=== PATIENT | female | born 1975 | race Two or more races ===

== ENCOUNTER 2018-01-26 01:48 | Emergency (ER) | payer SELFPAY ==
[~2018-01-26] VITALS: Ht 165.1 cm; Wt 65.8 kg
--- NOTE | 2018-01-26 02:21 | NUR ---
Pt. came into ED reporting anxiety d/t meeting boyfriends family for first time, denies SOB/CP/DUGAN/F/N/V
--- NOTE | 2018-01-26 02:25 | NUR ---
Dr. Montenegro in w/ pt for MSE
--- NOTE | 2018-01-26 02:37 | NUR ---
Patient discharged to home in stable conditon. Written and verbal after care instructions given. Patient verbalizes understanding of instructions. Pt. d/c w/ prescription per MD order, left w/ all belongings,
[2018-01-26 02:39] VITALS: BP 113/87
== END 2018-01-26 02:40 | disposition home or self-care (01) ==
LOC: ER 01:53
DX: F41.9 Anxiety disorder, unspecified (principal); F17.200 Nicotine dependence, unspecified, uncomplicated
CPT/HCPCS: A4663

== ENCOUNTER 2018-02-12 19:10 | Emergency (ER) | payer SELFPAY ==
[~2018-02-12] VITALS: Ht 165.1 cm; Wt 65.8 kg
--- NOTE | 2018-02-12 19:21 | NUR ---
Dr Reynaldo HARRIS MD at bedside for MSE.
[2018-02-12] MEDS ORDERED: IBUPROFEN 800 MG TABLET PO ONE (19:30)
[2018-02-12] MEDS ORDERED: IBUPROFEN 800 MG TABLET ONE (19:31)
--- NOTE | 2018-02-12 19:42 | NUR ---
Patient discharged to home in stable conditon. Written and verbal after care instructions given. Patient verbalizes understanding of instructions. Pt left ER in steady gait. All belongings with pt. VSS. NAD noted.
[2018-02-12 19:44] VITALS: BP 110/69
== END 2018-02-12 19:45 | disposition home or self-care (01) ==
LOC: ER 19:12
DX: G89.29 Other chronic pain (principal); M54.41 Lumbago with sciatica, right side; F17.200 Nicotine dependence, unspecified, uncomplicated
CPT/HCPCS: A4663

== ENCOUNTER 2018-06-13 23:28 | Emergency (ER) | payer OTHER, MEDICAID ==
[~2018-06-13] VITALS: Ht 165.1 cm; Wt 65.8 kg
--- NOTE | 2018-06-14 | NUR ---
Dr. Madera at bedside for MSE.
[2018-06-14] MEDS ORDERED: OXYCODONE/APAP 5-325 MG TABLET ONE (00:11)
--- NOTE | 2018-06-14 00:11 | NUR ---
Pt refused pain medication, states she drove here alone. notified.
[2018-06-14] MEDS ORDERED: OXYCODONE/APAP 5-325 MG TABLET PO ONE (00:15)
--- NOTE | 2018-06-14 00:15 | NUR ---
patient has been discharged. Exit care package and discharge instructions have been given and discussed. Did not adminsted oxycodone medications because patient verbalize she drove her by herselg. Gave patient prescription to receive at [facility] and to take when she gets home. Patient has steady gait and denies any discomfort at this time. Patient is stable and vital signs are WNL.
[2018-06-14 00:18] VITALS: BP 107/68
== END 2018-06-14 00:15 | disposition home or self-care (01) ==
LOC: ER 23:34
DX: M54.41 Lumbago with sciatica, right side (principal); F17.200 Nicotine dependence, unspecified, uncomplicated
CPT/HCPCS: A4663

== ENCOUNTER 2018-06-21 02:21 | Emergency (ER) | payer MEDICAID, OTHER ==
[~2018-06-21] VITALS: Ht 165.1 cm; Wt 64.9 kg
[2018-06-21] MEDS ORDERED: OXYCODONE/APAP 5-325 MG TABLET ONE (02:58)
[2018-06-21] MEDS ORDERED: OXYCODONE/APAP 5-325 MG TABLET PO ONE (03:00)
--- NOTE | 2018-06-21 03:00 | NUR ---
Patient discharged to home in stable conditon. Written and verbal after care instructions given. Patient verbalizes understanding of instructions. Patient ambulated with stable pain.
[2018-06-21 03:01] VITALS: BP 112/74
== END 2018-06-21 03:01 | disposition home or self-care (01) ==
LOC: ER 02:22
DX: G89.29 Other chronic pain (principal); M54.5 Low back pain; F17.200 Nicotine dependence, unspecified, uncomplicated
CPT/HCPCS: A4663

== ENCOUNTER 2018-07-02 20:47 | Emergency (ER) | payer MEDICAID ==
[~2018-07-02] VITALS: Ht 165.1 cm; Wt 65.8 kg
[2018-07-02] MEDS ORDERED: OXYCODONE/APAP 5-325 MG TABLET PO ONE (21:30)
[2018-07-02] MEDS ORDERED: OXYCODONE/APAP 5-325 MG TABLET ONE (21:40)
--- NOTE | 2018-07-02 21:45 | NUR ---
Patient discharged to home in stable conditon. Written and verbal after care instructions given. Patient verbalizes understanding of instructions. Patient states she will take an uber home. NAD noted at this time. Addendum: 07/02/18 at 2146 by MARTHA Pt ambulated out of ER with stable gait.
[2018-07-02 21:47] VITALS: BP 114/56
== END 2018-07-02 21:45 | disposition home or self-care (01) ==
LOC: ER 20:49
DX: G89.29 Other chronic pain (principal); M54.5 Low back pain; F17.200 Nicotine dependence, unspecified, uncomplicated
CPT/HCPCS: A4663

== ENCOUNTER 2018-07-11 23:57 | Emergency (ER) | payer MEDICAID ==
[~2018-07-11] VITALS: Ht 165.1 cm; Wt 56.7 kg
--- NOTE | 2018-07-12 00:37 | NUR ---
Patient discharged to home in stable conditon. Written and verbal after care instructions given. Patient verbalizes understanding of instructions.
== END 2018-07-12 00:39 | disposition home or self-care (01) ==
LOC: ER 07-12 00:13
DX: G89.29 Other chronic pain (principal); M54.5 Low back pain; F17.200 Nicotine dependence, unspecified, uncomplicated
CPT/HCPCS: A4663

== ENCOUNTER 2018-08-01 05:11 | Emergency (ER) | payer MEDICAID ==
[~2018-08-01] VITALS: Ht 165.1 cm; Wt 59.0 kg
--- NOTE | 2018-08-01 05:32 | NUR ---
Patient arrived to ER with chief complain of severe headache that started 12 hours ago. Patient AAOx4. Able to speak full sentences. Denies any N/V. No acute respiratory distress. No cardiovascular concern. No /GI concern. Bed on lock position. Fall precaution per protocol.
--- NOTE | 2018-08-01 05:44 | NUR ---
KIMBERLY RUSHING at bedside for MSE.
[2018-08-01] MEDS ORDERED: SUMATRIPTAN SUCCINATE 50 MG TABLET ONE (05:54)
[2018-08-01] MEDS ORDERED: SUMATRIPTAN SUCCINATE 50 MG TABLET PO ONE (06:00)
--- NOTE | 2018-08-01 06:29 | NUR ---
Patient discharged to home in stable conditon. Written and verbal after care instructions given. Patient verbalizes understanding of instructions. Patient ambulated out of ER with steady gait. All belongings with patient.
[2018-08-01 06:30] VITALS: BP 100/70
== END 2018-08-01 06:31 | disposition home or self-care (01) ==
LOC: ER 05:17
DX: G43.909 Migraine, unspecified, not intractable, without status migrainosus (principal); F17.200 Nicotine dependence, unspecified, uncomplicated
CPT/HCPCS: A4663

== ENCOUNTER 2018-09-14 04:45 | Emergency (ER) | payer MEDICAID ==
[~2018-09-14] VITALS: Ht 165.1 cm; Wt 65.8 kg
[2018-09-14] MEDS ORDERED: [UNRECOGNIZED DRUG - REMARK] (04:54)
[2018-09-14] MEDS ORDERED: [UNRECOGNIZED DRUG - REMARK] (04:54)
--- NOTE | 2018-09-14 05:08 | NUR ---
PATIENT BECAME ARGUEMENTATIVE TOWARD STAFF MEMBER AND ERMD STATING "I AM IN PAIN. I NEED PAIN MEDICATION." PATIENT BECAME ANGER AFTER SHE WAS SHOWN HERE HILARY REPORT.
--- NOTE | 2018-09-14 05:13 | NUR ---
PATIENT D/C'ED. REFUSED TO SIGN ACI.
== END 2018-09-14 05:15 | disposition home or self-care (01) ==
LOC: ER 04:45
DX: G43.909 Migraine, unspecified, not intractable, without status migrainosus (principal); G89.29 Other chronic pain; M54.5 Low back pain; F41.9 Anxiety disorder, unspecified; F17.200 Nicotine dependence, unspecified, uncomplicated; Z79.899 Other long term (current) drug therapy; Z76.5 Malingerer [conscious simulation]
CPT/HCPCS: A4663

== ENCOUNTER 2018-10-30 01:01 | Emergency (ER) | payer MEDICAID, OTHER ==
[~2018-10-30] VITALS: Ht 165.1 cm; Wt 63.5 kg
[~2018-10-30 01:01] MED LIST: [UNRECOGNIZED DRUG - REMARK]; [UNRECOGNIZED DRUG - REMARK]
[2018-10-30] MEDS ORDERED: KETOROLAC TROMETHAMINE 30 MG INJ IM ONE (01:15)
[2018-10-30] MEDS ORDERED: diphenhydrAMINE 50 MG/1 ML VIAL IM ONE ×2 (01:15)
[2018-10-30] MEDS ORDERED: predniSONE 20 MG TABLET PO ONE (01:15)
[2018-10-30] MEDS ORDERED: KETOROLAC TROMETHAMINE 30 MG INJ ONE (01:17)
[2018-10-30] MEDS ORDERED: diphenhydrAMINE 50 MG/1 ML VIAL ONE (01:17)
[2018-10-30] MEDS ORDERED: predniSONE 20 MG TABLET ONE (01:26)
--- NOTE | 2018-10-30 01:29 | NUR ---
Note maylin in EDM - 10/30/18 at 0138 by ANGELICA Patient discharged to home in stable conditon. Written and verbal after care instructions given. Patient verbalizes understanding of instructions. Pt ambulated out of ER with steady gait, no acute signs of distress, VSS, all belongings taken.
--- NOTE | 2018-10-30 01:30 | NUR ---
Patient given written and verbal discharge instructions. Patient verbalizes understanding of instructions. Patient is ambulatory with steady gait. Refuses offer of [facility] placement. Patient given list of available shelters in surrounding area. Pt refused to sign homeless waiver form and refused all other services provided by the hospital.
== END 2018-10-30 01:39 | disposition home or self-care (01) ==
LOC: ER 01:11
DX: G89.29 Other chronic pain (principal); M54.9 Dorsalgia, unspecified; F41.9 Anxiety disorder, unspecified; F17.200 Nicotine dependence, unspecified, uncomplicated; Z79.899 Other long term (current) drug therapy
CPT/HCPCS: 96372; 99283; J1200; J7512; J1885

== ENCOUNTER 2019-07-18 22:29 | Emergency (ER) | payer OTHER ==
[~2019-07-18] VITALS: Ht 165.1 cm; Wt 65.8 kg
--- NOTE | 2019-07-18 22:40 | NUR ---
Dr. Escalante at bedside for MSE
[2019-07-18 22:49] VITALS: BP 126/71
--- NOTE | 2019-07-18 22:49 | NUR ---
Patient discharged to home in stable condition. Written and verbal after care instructions given. Patient verbalizes understanding of instructions. Stressed follow up or return to ER for worsening s/s. Patient ambulating with steady gait. NAD noted
== END 2019-07-18 22:49 | disposition home or self-care (01) ==
LOC: ER 22:34
DX: M54.42 Lumbago with sciatica, left side (principal); G89.29 Other chronic pain; F90.9 Attention-deficit hyperactivity disorder, unspecified type; F41.9 Anxiety disorder, unspecified; Z79.899 Other long term (current) drug therapy
CPT/HCPCS: A4663

== ENCOUNTER 2019-08-22 22:20 | Emergency (ER) | payer OTHER ==
[~2019-08-22] VITALS: Ht 165.1 cm; Wt 65.8 kg
--- NOTE | 2019-08-22 22:39 | NUR ---
Dr. Washington at bedside for MSE.
--- NOTE | 2019-08-22 22:46 | NUR ---
Patient discharged to home in stable condition. Written and verbal after care instructions given. Patient verbalizes understanding of instructions. Stressed follow up or return to ER for worsening s/s. Patient ambulated out of ER with steady gait, no acute signs of distress, VSS, all belongings taken.
[2019-08-22 22:48] VITALS: BP 118/71
== END 2019-08-22 22:48 | disposition home or self-care (01) ==
LOC: ER 22:27
DX: G43.909 Migraine, unspecified, not intractable, without status migrainosus (principal); G89.29 Other chronic pain; F90.9 Attention-deficit hyperactivity disorder, unspecified type; M54.40 Lumbago with sciatica, unspecified side; F17.200 Nicotine dependence, unspecified, uncomplicated
CPT/HCPCS: A4663

== ENCOUNTER 2019-12-19 05:05 | Emergency (ER) | payer OTHER ==
[~2019-12-19] VITALS: Ht 165.1 cm; Wt 65.8 kg
--- NOTE | 2019-12-19 05:40 | NUR ---
Patient discharged to home in stable condition. Written and verbal after care instructions given. Patient verbalizes understanding of instructions. Stressed follow up or return to ER for worsening s/s.
[2019-12-19 05:41] VITALS: BP 146/79
== END 2019-12-19 05:41 | disposition home or self-care (01) ==
LOC: ER 05:12
DX: Z76.0 Encounter for issue of repeat prescription (principal); G89.29 Other chronic pain; F17.210 Nicotine dependence, cigarettes, uncomplicated; F41.9 Anxiety disorder, unspecified; R51.9 Headache, unspecified; R03.0 Elevated blood-pressure reading, without diagnosis of hypertension
CPT/HCPCS: A4663

== ENCOUNTER 2020-03-16 23:17 | Emergency (ER) | payer OTHER ==
[~2020-03-16] VITALS: Ht 165.1 cm; Wt 65.8 kg
--- NOTE | 2020-03-16 23:18 | NUR ---
at bedside for MSE.
[2020-03-16 23:50] VITALS: BP 145/78
--- NOTE | 2020-03-16 23:50 | NUR ---
Patient discharged to home in stable condition. Written and verbal after care instructions given. Patient verbalizes understanding of instructions. Stressed follow up or return to ER for worsening s/s. Pt ambulated out of ER in stable gait. No acute distress noted.
== END 2020-03-17 | disposition home or self-care (01) ==
LOC: ER 23:24
DX: G43.909 Migraine, unspecified, not intractable, without status migrainosus (principal); Z76.0 Encounter for issue of repeat prescription
CPT/HCPCS: A4663

== ENCOUNTER 2020-04-25 03:54 | Emergency (ER) | payer OTHER ==
[~2020-04-25] VITALS: Ht 165.1 cm; Wt 70.3 kg
--- NOTE | 2020-04-25 04:05 | NUR ---
Patient came into ER for c/o DUGAN that started 2 days ago.
--- NOTE | 2020-04-25 04:06 | NUR ---
Dr. Washington at bedside for MSE.
[2020-04-25] MEDS ORDERED: OXYC-133 PO (04:13)
--- NOTE | 2020-04-25 04:17 | NUR ---
Patient discharged to home in stable condition. Written and verbal after care instructions given. Patient verbalizes understanding of instructions. Stressed follow up or return to ER for worsening s/s. Pt ambulated out of the ER with steady gait. All belongings with pt.
[2020-04-25 04:18] VITALS: BP 145/80
== END 2020-04-25 04:18 | disposition home or self-care (01) ==
LOC: ER 03:56
DX: G89.4 Chronic pain syndrome (principal); R51.9 Headache, unspecified; Z76.0 Encounter for issue of repeat prescription; F17.210 Nicotine dependence, cigarettes, uncomplicated; R03.0 Elevated blood-pressure reading, without diagnosis of hypertension; F90.9 Attention-deficit hyperactivity disorder, unspecified type; F41.9 Anxiety disorder, unspecified
CPT/HCPCS: A4663

== ENCOUNTER 2020-12-03 02:31 | Emergency (ER) | payer OTHER ==
[~2020-12-03] VITALS: Ht 165.1 cm; Wt 65.8 kg
[~2020-12-03 02:31] MED LIST changes: +OXYC-133 PO; -[UNRECOGNIZED DRUG - REMARK]; -[UNRECOGNIZED DRUG - REMARK]
[2020-12-03] MEDS ORDERED: OXYC-128 PO (03:40)
[2020-12-03] MEDS ORDERED: CLIN300C3 PO (03:40)
[2020-12-03] MEDS ORDERED: CLINDAMYCIN HCL 150 MG CAPSULE ONE (03:45)
[2020-12-03] MEDS ORDERED: CLINDAMYCIN HCL 150 MG CAPSULE PO ONE (03:45)
--- NOTE | 2020-12-03 03:46 | NUR ---
Patient discharged to home in stable condition. Written and verbal after care instructions given. Patient verbalizes understanding of instructions. Stressed follow up or return to ER for worsening s/s. Pt walks with steady gait. VSS. All belongings taken.
[2020-12-03 03:47] VITALS: BP 139/78
== END 2020-12-03 03:47 | disposition home or self-care (01) ==
LOC: ER 02:41
DX: K02.9 Dental caries, unspecified (principal); G89.4 Chronic pain syndrome; F17.200 Nicotine dependence, unspecified, uncomplicated
CPT/HCPCS: A4663